=== PATIENT | female | born 1985 ===

== ENCOUNTER 2017-05-16 08:36 | Emergency (ER) | payer OTHER ==
[2017-05-16 08:51] VITALS: BP 109/77
--- NOTE | 2017-05-16 09:18 | UC ---
Throat Pain/Nasal Remi HPI - HPI Summary HPI Summary: 32 yo female with sore throat x 1 day that is her primary complaint she has been ill for almost a week with cough/sinus pressure has had to use her rescue inhaler - History of Current Complaint Chief Complaint: UCGeneralIllness Stated Complaint: SORE THROAT Time Seen by Provider: 05/16/17 08:52 Hx Obtained From: Patient Hx Last Menstrual Period: 04/22/17 Onset/Duration: Gradual Onset, Lasting Days Severity: Moderate Pain Intensity: 4 Pain Scale Used: 0-10 Numeric Cough: Nonproductive Associated Signs & Symptoms: Positive: Wheezing, Sinus Discomfort, Nasal Discharge Related History: Seasonal Allergies - Epiglottits Risk Factors Epiglottis Risk Factors: Negative - Allergies/Home Medications Allergies/Adverse Reactions: Allergies Allergy/AdvReac Type Severity Reaction Status Date / Time Ibuprofen Allergy Intermediate Shortness Verified 05/16/17 08:43 of Breath PMH/Surg Hx/FS Hx/Imm Hx Previously Healthy: Yes Respiratory History: Asthma - Surgical History Surgical History: None Surgery Procedure, Year, and Place: chest tubes as - Family History Known Family History: Negative: Cardiac Disease, Hypertension, Diabetes - Social History Alcohol Use: Occasionally Substance Use Type: None Smoking Status (MU): Never Smoked Tobacco Have You Smoked in the Last Year: No When Did the Patient Quit Smoking/Using Tobacco: 7 yrs ago - Immunization History Most Recent Influenza Vaccination: declined Most Recent Tetanus Shot: 06/24/14 Most Recent Pneumonia Vaccination: none Review of Systems Constitutional: Negative Skin: Negative Eyes: Negative ENT: Sore Throat, Nasal Discharge, Sinus Congestion Respiratory: Cough Cardiovascular: Negative Gastrointestinal: Negative Genitourinary: Negative Motor: Negative Neurovascular: Negative Musculoskeletal: Negative Neurological: Negative Psychological: Negative Is Patient Immunocompromised?: No All Other Systems Reviewed And Are Negative: Yes Physical Exam Triage Information Reviewed: Yes Appearance: Well-Appearing, No Pain Distress, Well-Nourished Vital Signs: Initial Vital Signs Temp 98.1 F 05/16/17 08:45 Pulse 108 05/16/17 08:45 Resp 18 05/16/17 08:45 BP 109/77 05/16/17 08:45 Pulse Ox 99 05/16/17 08:45 Vital Signs Reviewed: Yes Eyes: Positive: Conjunctiva Clear ENT: Positive: Hearing grossly normal, Pharyngeal erythema, Nasal congestion, TMs normal. Negative: Nasal drainage, TM bulging, TM dull, TM red, Tonsillar swelling, Tonsillar exudate, Trismus, Muffled/hoarse voice Dental Exam: Normal Neck: Positive: Supple, Nontender, Enlarged Nodes @ - left ant cerv>right ant cerv Respiratory: Positive: Lungs clear, Normal breath sounds, No respiratory distress, No accessory muscle use Cardiovascular: Positive: RRR, No Murmur Musculoskeletal: Positive: ROM Intact, No Edema Neurological: Positive: Alert Psychological Exam: Normal Skin Exam: Normal Diagnostics - Laboratory Diagnostic Studies Completed/Ordered: strep (-) Throat Pain/Nasal Course/Dx - Differential Dx/Diagnosis Provider Diagnoses: acute bronchitis. phayngitis Discharge - Discharge Plan Condition: Stable Disposition: HOME Prescriptions: Amoxicillin PO (*) [Amoxicillin 875 MG (*)] 875 mg PO BID #14 tab Prednisone [Deltasone] 40 mg PO DAILY #10 tab Patient Education Materials: Pharyngitis (ED), Acute Bronchitis (ED) Forms: *Work Release Referrals: Nora Albrecht MD [Primary Care Provider] - 4 Days (if not better)
== END 2017-05-16 09:25 | disposition home or self-care (01) ==
LOC: UCEAST 08:36
DX: J20.9 Acute bronchitis, unspecified (principal); J02.9 Acute pharyngitis, unspecified; J45.909 Unspecified asthma, uncomplicated; Z88.6 Allergy status to analgesic agent
CPT/HCPCS: 87651; 99212; G0463

== ENCOUNTER 2018-07-07 20:36 | Emergency (ER) | payer SELFPAY ==
--- NOTE | 2018-07-07 21:38 | ED ---
GI/ HPI - HPI Summary HPI Summary: 33-year-old female presents with right-sided flank pain today. States she's had intermittent pain today. States that the past she's had right-sided shoulder and neck pain. She denies any numbness or tingling. No headache. No dizziness. No change in vision. She denies any chest pain or shortness of breath. She does admits to some right sided abdominal pain. No nausea or vomiting. No urinary symptoms. no abnormal vaginal discharge. No cough. No recent illness. Has never had this pain before. Has no medical conditions. no injury. no fever. she admits to palpitations. - History of Current Complaint Chief Complaint: EDFlankPain Time Seen by Provider: 07/07/18 21:13 Stated Complaint: NECK AND SHOULDER PAIN Hx Last Menstrual Period: 04/22/17 Pain Intensity: 4 - Allergy/Home Medications Allergies/Adverse Reactions: Allergies Allergy/AdvReac Type Severity Reaction Status Date / Time MS Ibuprofen [Ibuprofen] Allergy Intermediate Shortness Verified 05/16/17 08:43 of Breath PMH/Surg Hx/FS Hx/Imm Hx Endocrine/Hematology History: Denies: Hx Diabetes, Hx Thyroid Disease Cardiovascular History: Denies: Hx Congenital Heart Disease, Hx Hypertension, Hx Pacemaker/ICD Respiratory History: Reports: Hx Asthma - uses albuterol mdi as needed Denies: Hx Chronic Obstructive Pulmonary Disease (COPD) GI History: Denies: Hx Ulcer Sensory History: Denies: Hx Hearing Aid Psychiatric History: Denies: Hx Anxiety, Hx Panic Disorder, Hx Substance Abuse - Surgical History Surgery Procedure, Year, and Place: chest tubes as Infectious Disease History: No Infectious Disease History: Denies: Hx Clostridium Difficile, Hx Hepatitis, Hx Human Immunodeficiency Virus (HIV), Hx of Known/Suspected MRSA, Hx Shingles, Hx Tuberculosis, Hx Known/ Suspected VRE, Hx Known/Suspected VRSA, History Other Infectious Disease, Traveled Outside the [place] in Last 30 Days - Family History Known Family History: Positive: None Negative: Cardiac Disease, Hypertension, Diabetes - Social History Alcohol Use: Occasionally Substance Use Type: Reports: None Smoking Status (MU): Never Smoked Tobacco Have You Smoked in the Last Year: No Review of Systems Negative: Fever Negative: Chest Pain Negative: Shortness Of Breath Negative: Abdominal Pain, Vomiting, Diarrhea, Nausea Positive: flank pain Positive: Myalgia - right side shoulder and neck pain All Other Systems Reviewed And Are Negative: Yes Physical Exam Triage Information Reviewed: Yes Vital Signs On Initial Exam: Initial Vitals Temp Pulse Resp BP Pulse Ox 99.1 F 93 20 118/81 100 07/07/18 20:46 07/07/18 20:46 07/07/18 20:46 07/07/18 20:46 07/07/18 20:46 Vital Signs Reviewed: Yes Appearance: Positive: Well-Appearing Skin: Positive: Warm, Dry Head/Face: Positive: Normal Head/Face Inspection Eyes: Positive: Normal, EOMI, CINDY, Conjunctiva Clear ENT: Positive: Normal ENT inspection, Pharynx normal, TMs normal Neck: Positive: Other: - tenderness over right side of neck Respiratory/Lung Sounds: Positive: Clear to Auscultation, Breath Sounds Present Cardiovascular: Positive: Normal, RRR Abdomen Description: Positive: Soft, Other: - tenderness RUQ. Negative: CVA Tenderness (R), CVA Tenderness (L) Bowel Sounds: Positive: Present Musculoskeletal: Positive: Normal Neurological: Positive: Normal Psychiatric: Positive: Normal Diagnostics - Vital Signs Vital Signs Temp Pulse Resp BP Pulse Ox 07/07/18 20:46 99.1 F 93 20 118/81 100 - Laboratory Result Diagrams: 07/07/18 21:25 07/07/18 21:25 Lab Statement: Any lab studies that have been ordered have been reviewed, and results considered in the medical decision making process. - Ultrasound No standard instances Ultrasound Interpretation Completed By: Radiologist Summary of Ultrasound Findings: IMPRESSION: 1. Small gallbladder polyp. 2. No sonographic findings of cholelithiasis or cholecystitis. - EKG No standard instances Cardiac Rate: NL EKG Rhythm: Sinus Rhythm EKG Comparison: No Significant Change Summary of EKG Findings: sinus rhythm Re-Evaluation - Re-Evaluation First Eval Re-Evaluation Time: 23:01 Change: Unchanged Comment: pain still over right scapula area. decline further imaging after discussing results. GIGU Course/Dx - Course Course Of Treatment: 33-year-old female presents with right-sided flank pain today. States she's had intermittent pain today. States that the past she's had right-sided shoulder and neck pain. She denies any numbness or tingling. No headache. No dizziness. No change in vision. She denies any chest pain or shortness of breath. She does admits to some right sided abdominal pain. No nausea or vomiting. No urinary symptoms. no abnormal vaginal discharge. No cough. No recent illness. Has never had this pain before. Has no medical conditions. no injury. no fever. On exam tenderness right upper quadrant. Negative CVA tenderness. Tenderness of the right scapula. Lungs clear to auscultation. Heart regular rate and rhythm. wbc slightly elevated. crp normal. troponin zero. d-dimer negative. ekg shows sinus rhythm. gallbladder u/ s normal. discussed get CT neck and patient declined. she states she would like to go home. will have follow up with primary. patient understand and agrees with plan. - Diagnoses Differential Diagnoses - Female: Cholelithiasis, Cholecystitis, Pyelonephritis, Other - PE Provider Diagnoses: Right shoulder pain, Right flank pain, Neck pain Discharge - Sign-Out/Discharge Documenting (check all that apply): Patient Departure - Discharge Plan Condition: Good Disposition: HOME Patient Education Materials: Neck Pain (ED) Referrals: Nora Albrecht MD [Primary Care Provider] - Additional Instructions: take Tylenol every 6 hours as needed for pain follow up with primary within 5 days Return to ED if develop any new or worsening symptoms - Billing Disposition and Condition Condition: GOOD Disposition: Home
[2018-07-07 21:40] LABS: ABS Basophils 0.1 10^3/ul (0-0.2); ABS Eosinophils 0.1 10^3/ul (0-0.6); ABS Lymphocytes 2.4 10^3/ul (1.0-4.8); ABS Monocytes 0.8 10^3/ul (0-0.8); ABS Neutrophils 7.6 10^3/ul (1.5-7.7); ABS Nucleated RBC 0 10^3/ul; Eosinophil % 1.1 %; Hematocrit 40 % (35-47); Hemoglobin 13.3 g/dl (12.0-16.0); Lymphocyte % 21.8 %; Mean Corpuscular HGB Conc 34 g/dl (31-36); Mean Corpuscular Hemoglobin 26 pg (27-31); Mean Corpuscular Volume 77 fL (80-97); Mean Platelet Volume 7.9 fL (7.4-10.4); Nucleated Red Blood Cells % 0.1; Platelet Count 246 10^3/ul (150-450); Red Blood Count 5.17 10^6/ul (4.00-5.40); Red Cell Distribution Width 15 % (10.5-15); White Blood Count 10.9 10^3/ul (3.5-10.8)
[2018-07-07 21:58] LABS: ALT 20 U/L (7-52); AST 18 U/L (13-39); Albumin 4.4 g/dL (3.2-5.2); Albumin/Globulin Ratio 1.6 (1-3); Alkaline Phosphatase 54 U/L (34-104); Anion Gap 5 mmol/L (2-11); BUN/Creatinine Ratio 17.5 (8-20); Blood Urea Nitrogen 14 mg/dL (6-24); C Reactive Protein 1.78 mg/L (<8.01); CO2 Carbon Dioxide 25 mmol/L (22-32); Calcium 9.3 mg/dL (8.6-10.3); Chloride 106 mmol/L (101-111); EGFR Non-African American 82.1 (>60); Globulin 2.7 g/dL (2-4); Glucose 132 mg/dL (70-100); Potassium 3.6 mmol/L (3.5-5.0); Sodium 136 mmol/L (135-145); Total Protein 7.1 g/dL (6.4-8.9)
[2018-07-07 22:03] LABS: HCG Pregnancy < 0.60 mIU/mL
[2018-07-07 22:44] VITALS: BP 114/73
[2018-07-07 23:22] LABS: Urine Appearance Cloudy; Urine Bacteria Absent (Absent); Urine Bilirubin Negative (Negative); Urine Blood 1+ (Negative); Urine Color Yellow; Urine Glucose Negative (Negative); Urine Ketones Negative (Negative); Urine Nitrite Negative (Negative); Urine Protein Negative (Negative); Urine Red Blood Cell 3+(>10/hpf) (Absent); Urine Specific Gravity 1.023 (1.010-1.030); Urine Urobilinogen Negative (Negative); Urine White Blood Cell Trace(0-5/hpf) (Absent)
== END 2018-07-07 23:29 | disposition home or self-care (01) ==
LOC: ED 20:36
DX: R10.84 Generalized abdominal pain (principal); M54.2 Cervicalgia; M25.511 Pain in right shoulder
CPT/HCPCS: 36415; 76705; 80053; 81003; 81015; 83690; 84484; 84702; 85025; 85379; 86140; 87086; 93005; 99282

== ENCOUNTER 2019-07-17 15:50 | Emergency (ER) | payer BC, OTHER | END 2019-07-17 16:09 | disposition left against medical advice (07) | LOC: UCEAST 15:50 | DX: Z53.21 Procedure and treatment not carried out due to patient leaving prior to being seen by health care provider (principal) ==